=== PATIENT | female | born 1960 | race Caucasian/White ===

== ENCOUNTER 2019-02-21 13:19 | Day surgery (SDC) | payer MEDICARE, OTHER ==
[~2019-02-21 13:19] MED LIST: ACETAMINOPHEN 1,000 MG/100 ML BTL IV ONE; CEFAZOLIN 2 Gram 2 GM/50 ML BAG IVPB ONE
[2019-02-21] MEDS ORDERED: LIDOCAINE 2% MDV (20MG/ML) 20ML VIAL IV ONE (13:20)
[2019-02-21] MEDS ORDERED: HYDROCODONE/APAP 7.5/325MG TABLET PO ONE (13:20)
[2019-02-21] MEDS ORDERED: PROPOFOL 10 MG/ML VIAL IV ONE (13:20)
[2019-02-21] MEDS ORDERED: SEVOFLURANE 250 ML INH ONE (13:20)
[2019-02-21] MEDS ORDERED: MIDAZOLAM HCL 2MG/2ML VIAL IV ONE (13:20)
[2019-02-21] MEDS ORDERED: FENTANYL PF 100MCG/2ML VIAL IV ONE (13:20)
[2019-02-21] MEDS ORDERED: ONDANSETRON HCL IV 4 MG/2 ML VIAL IVP ONE (13:20)
[2019-02-21] MEDS ORDERED: KETOROLAC 30 MG/ML VIAL IVP ONE (13:20)
[2019-02-21 13:50] LABS: HEMATOCRIT 42.4 % (35.0-47.0); HEMOGLOBIN 13.9 gm/dl (11.6-16.0)
[2019-02-21 14:04] LABS: BLOOD UREA NITROGEN 29 mg/dL (6-20); CREATININE 0.7 mg/dL (0.5-0.9); EST GLOMERULAR FILTRATION RATE > 60 mL/min; GLUCOSE,RANDOM 101 mg/dL (74-109)
[2019-02-21] MEDS ORDERED: MORPHINE SULFATE 4 MG/ML VIAL ONE (16:32)
[2019-02-21] MEDS ORDERED: BUPIVACAINE 0.5% W/EPI MPF 30 ML VIAL SQ ONE ×2 (16:37)
[2019-02-21] MEDS ORDERED: MORPHINE SULFATE 5 MG/ML VIAL IM ONE ×2 (16:38)
[2019-02-21] MEDS ORDERED: METHYLPREDNISOLONE 40MG/VIAL IM ONE (16:38)
--- NOTE | 2019-03-05 08:51 | Operative Note ---
DATE OF SURGERY: 02/21/2019 PREOPERATIVE DIAGNOSIS: Internal derangement of the right knee. POSTOPERATIVE DIAGNOSES: 1. Small grade 3 chondromalacia of patella. 2. Grade 3 chondromalacia of medial femoral condyle centered at 45 degrees with peeling cartilage. 3. Small radial tear involving the lateral horn of the lateral meniscus. OPERATION: 1. Right knee arthroscopy with partial lateral meniscectomy. 2. Right knee arthroscopy with chondroplasty of medial femoral condyle and patella. Staff Surgeon: Yosef Schwarz MD Anesthesia: General. Preparation: Chloraprep. Individual Considerations: None. PROCEDURE: The patient was taken to the operating room and placed supine on the operating room table. The patient had a successful induction with general anesthetic. The right lower extremity was prepped and draped in the usual fashion. The patient had a superolateral inflow cannula placed. Skin was infiltrated with 0.5% Marcaine with epinephrine prior. The knee was then inflated with normal saline. An inferomedial and an inferolateral portal were made in a similar fashion. The arthroscope was introduced through the inferolateral portal up into the pouch. The patellofemoral compartment showed grade 3 change to the patella with normal tracking. Cartilaginous loose bodies were seen in both gutters and were irrigated out. No significant synovitis. Medially, the medial compartment was normal including meniscus and medial tibial plateau but she had basically peeling cartilage from grade 3 change at the medial femoral condyle centered at about 45 degrees of flexion. This was debrided back to a stable cartilage down to bone. The area was like the size of about an elongated quarter. In the notch, the cruciates were normal. In the lateral compartment, she had a small radial tear of the lateral horn of the lateral meniscus. This was debrided back to a stable rim to prevent the formation of flaps with a shaver and small basket. The remainder of the meniscus and articular cartilage laterally was intact. The knee was then irrigated out with saline to remove loose floating debris. Portals were closed with moe, and 20 mL of 0.5% Marcaine with epinephrine along with 4 mg of morphine and 80 mg of Depo-Medrol were injected into the knee. A sterile bulky compressive dressing was applied. The patient tolerated procedure well. Needle and sponge counts were correct. Estimated blood loss was minimal. She was taken back to recovery in good condition. There were no complications. [facility]
== END 2019-02-21 16:40 | disposition home or self-care (01) ==
LOC: SUR 13:19
PROVIDERS: ATTEND Orthopaedic Surgery
DX: S83.281A Other tear of lateral meniscus, current injury, right knee, initial encounter (principal); M94.261 Chondromalacia, right knee; I10 Essential (primary) hypertension; E78.00 Pure hypercholesterolemia, unspecified; E03.9 Hypothyroidism, unspecified; M81.0 Age-related osteoporosis without current pathological fracture
CPT/HCPCS: 29881; 01400; 85018; 85014; 80048; 93005; J1885; J2405; J3010; J0690; J2270; J1030

== ENCOUNTER 2019-10-24 06:54 | Day surgery (SDC) | payer MEDICARE, OTHER ==
[~2019-10-24 06:54] MED LIST changes: -ACETAMINOPHEN 1,000 MG/100 ML BTL IV ONE; +CELECOXIB 100 MG CAPSULE PO ONE; +FAMOTIDINE 20MG TABLET PO ONE; +METOCLOPRAMIDE 10 MG TABLET PO ONE; +SCOPOLAMINE 1 PATCH TDSY TD ONE; +VANCOMYCIN 1GM/200ML PREMIX 1 GM/200 ML PIGGYBACK IVPB ONE
[2019-10-24] MEDS ORDERED: LIDOCAINE 2% MDV (20MG/ML) 20ML VIAL IV ONE (06:55)
[2019-10-24] MEDS ORDERED: DIPHENHYDRAMINE HCL 50 MG/ML VIAL IVP ONE (06:55)
[2019-10-24] MEDS ORDERED: DEXAMETHASONE 4 MG/ML 1ML VIAL IVP ONE (06:55)
[2019-10-24] MEDS ORDERED: ROPIVACAINE HCL (NAROPIN) /PF 5MG/ML 20ML VIAL IV ONE (06:55)
[2019-10-24] MEDS ORDERED: PROPOFOL 10 MG/ML VIAL IV ONE (06:55)
[2019-10-24] MEDS ORDERED: MIDAZOLAM HCL 2MG/2ML VIAL IV ONE (06:55)
[2019-10-24] MEDS ORDERED: RINGERS SOLUTION,LACTATED 1,000 ML IV ONE ×3 (07:50→11:13)
[2019-10-24 08:50] LABS: ABO GROUP A; ANTIBODY SCREEN NEGATIVE (NEGATIVE); RH TYPE POSITIVE
[2019-10-24] MEDS ORDERED: BUPIVACAINE 0.5% W/EPI MPF 30 ML VIAL IU ONE (09:58)
[2019-10-24] MEDS ORDERED: TRANEXAMIC ACID 1,000 MG/10 ML ML IV ONE (09:59)
[2019-10-24] MEDS ORDERED: TRANEXAMIC ACID 1,000 MG/10 ML ML IU ONE (09:59)
[2019-10-24] MEDS: FENTANYL CITRATE/PF (PACU) 50 MCG/ML VIAL IVP PRN ×4 (11:35→11:45)
[2019-10-24] MEDS ORDERED: HYDROMORPHONE HCL 2 MG/ML VIAL IVP PRN (11:46)
[2019-10-24] MEDS ORDERED: BACLOFEN 10 MG TABLET PO PRN (12:18)
[2019-10-24] MEDS ORDERED: ONDANSETRON HCL IV 4 MG/2 ML VIAL IVP PRN (12:23)
[2019-10-24] MEDS ORDERED: TRAMADOL HCL 50 MG TABLET PO PRN (12:23)
[2019-10-24] MEDS ORDERED: NALOXONE 0.4 MG/1 ML VIAL IVP PRN (12:23)
[2019-10-24] MEDS ORDERED: ZOLPIDEM TARTRATE 5 MG TABLET PO PRN (12:23)
[2019-10-24] MEDS ORDERED: BISACODYL 10 MG SUPP RC PRN (12:23)
[2019-10-24] MEDS ORDERED: AL HYDROX/MAG HYDROX 30ML UD PO PRN (12:23)
[2019-10-24] MEDS ORDERED: KETOROLAC 30 MG/ML VIAL IVP PRN (12:23)
[2019-10-24] MEDS ORDERED: ACETAMINOPHEN W/ CODEINE 300MG/60MG TABLET PO PRN ×2 (12:23)
[2019-10-24] MEDS ORDERED: DIPHENHYDRAMINE HCL 25 MG CAPSULE PO PRN (12:23)
[2019-10-24] MEDS ORDERED: ACETAMINOPHEN 325 MG TAB PO PRN (12:23)
[2019-10-24] MEDS ORDERED: MAGNESIUM HYDROXIDE 30 ML UDC PO PRN (12:23)
--- NOTE | 2019-10-24 15:26 | Rehab Evaluation ---
Patient Information - Patient Information Diagnosis: R Knee DJD Ordered Treatment: PT Evaluate and Treat Status: Initial Evaluation Surgery: Yes (R TKA) Date of Surgery: 10/24/19 Past Medical/Surgical Hx: PAST MEDICAL/SURGICAL HISTORY Past Surgical History Injections to right knee, Right knee scope Uterine ablation Spinal surgerysx 10- rods, cages, screws thyroidectomy colonoscopy; c section 34 yrs ago. PMH - Respiratory Hx Respiratory Disorders No PMH - Cardiovascular Hx Cardiovascular Disorders Yes Hx Hypertension Yes: on meds good control Exercise Tolerance Good PMH - Neuro Hx Neurological Disorders No PMH - GI Hx Gastrointestinal Disorders No PMH - Hx Genitourinary Disorders No PMH - Endocrine Hx Endocrine Disorders Yes Hx Thyroid Disease Yes: removed, on medications PMH - Musculoskeletal Hx Musculoskeletal Disorders Yes Hx Arthritis Yes: knees, elbows, hips, hands Hx Osteoporosis Yes: on medications PMH - Psych Hx Psychiatric Problems Yes Hx Depression Yes: on meds, good control PMH - Hematology/Oncology Hx Hematology/Oncology Yes Disorders Hx Bruising Yes: from aspirin, bruises easy Social History: Detail (Patient lives alone in a tri-level home. There are seven steps to get in the house from the garage, and then another seven to get to the living room on the next floor. There is 1 railing on all of the flights of stairs. In the bathroom there is a walk-in shower with a hand-held shower head and a shower bench but no grab bars. There is a raised toilet with no grab bars, but patient stated that there is a counter nearby that she can use to pushup from. Patient reported that she will have assistance for the first weekend after returning home. She has a 2-wheeled walker, and a single point cane available to use. She is scheduled to begin home PT following discharge.) Precautions: [place], Fall, Other (WBAT on R LE) - Time With Patient Total Time Spent With Patient (Min): 30 Treatment Procedures: Detail (Initial evaluation; low complexity. The patient was left in bed with her call llight and bedside table within reach. The patient's family was in the room with her.) Subjective Information - Subjective Information Per Patient (Patient reported that her R knee felt sore but she was not having any pain yet.) Objective Data - Pain Pain Present: No - Mental Status Patient Orientation: Oriented x3 - Visual Perception Appears within normal limits for therapeutic activities - ROM Other (R knee ROM is limited as expected s/p R TKA procedure. R hip and ankle, and L LE ROM is within normal limits for functional activities.) - Strength/Tone Other (R knee strength is limited as expected s/p R TKA procedure. R ankle and hip, and L LE strength is within normal limits for functional activities.) - Coordination Appears within normal limits for therapeutic activities - Bed Mobility Independent (Patient was independent in moving up in bed, and moving to the sides in bed. She was also independent in moving to and from the edge of the bed.) - Transfers Independent (Patient was independent in sit to stand, stand to sit, sit to supine, supine to sit.) - Balance Balance Sitting: Good (Patient demonstrated good sitting balance while donning and doffing her shoes and socks.) Balance Standing: Good (Patient demonstrated good standing balance while donning her pants and briefs when using the bathroom, and when ambulating with the front-wheeled walker.) - Gait Detail (The patient ambulated 80 feet with a front-wheeled walker with supervision, and was WBAT on the R LE.) Therapy Assessment - Therapy Assessment Detail (Patient presents with decreased ROM and strength of the R knee that make her a good candidate for inpatient physical therapy. She will progress towards meeting her goals by the time of discharge.) Problem List - Problem List Physical Therapy Problem List: Detail (1. Decreased R knee ROM 2. Decreased R knee strength 3. Gait abnormalities 4. Decreased tolerance for stairs) Goals - Goals Physical Therapy Goals: 1. Patient will be able to demonstrate correct technique of HEP exercises and good understanding of exercises to improve R knee ROM and strength following discharge. 2. The patient will be able to ambulate household distances using the front-wheeled walker, and WBAT on the R LE, independently to be able to get around her home following discharge. 3. The patient will be able to negotiate 7 stairs with correct technique to be able to use the stairs in her home following discharge. Prognosis - Prognosis Good Plan - Plan Physical Therapy Plan: Patient will be seen for 1-2 more visits for therapeutic exercises and activities, gait training, stair training, and HEP instruction.
--- NOTE | 2019-10-24 15:33 | Rehab Evaluation ---
Patient Information - Patient Information Diagnosis: R Knee OA Ordered Treatment: OT Evaluate and Treat Status: Initial Evaluation Surgery: Yes (R TKA) Date of Surgery: 10/24/19 Past Medical/Surgical Hx: PAST MEDICAL/SURGICAL HISTORY Past Surgical History Injections to right knee, Right knee scope Uterine ablation Spinal surgerysx 10- rods, cages, screws thyroidectomy colonoscopy; c section 34 yrs ago. PMH - Respiratory Hx Respiratory Disorders No PMH - Cardiovascular Hx Cardiovascular Disorders Yes Hx Hypertension Yes: on meds good control Exercise Tolerance Good PMH - Neuro Hx Neurological Disorders No PMH - GI Hx Gastrointestinal Disorders No PMH - Hx Genitourinary Disorders No PMH - Endocrine Hx Endocrine Disorders Yes Hx Thyroid Disease Yes: removed, on medications PMH - Musculoskeletal Hx Musculoskeletal Disorders Yes Hx Arthritis Yes: knees, elbows, hips, hands Hx Osteoporosis Yes: on medications PMH - Psych Hx Psychiatric Problems Yes Hx Depression Yes: on meds, good control PMH - Hematology/Oncology Hx Hematology/Oncology Yes Disorders Hx Bruising Yes: from aspirin, bruises easy Premorbid Status: Detail (The patient is responsible for all home mgmt, meal prep and laundry tasks. She has a lawn service for yard work.) Social History: Detail (Patient lives alone in a tri-level home. There are seven steps to get in the house from the garage, and then another seven to get to the living room on the next floor. There is 1 railing on all of the flights of stairs. In the bathroom there is a walk-in shower with a hand-held shower head and a shower bench but no grab bars. There is a raised toilet with no grab bars, but patient stated that there is a counter nearby that she can use to push up from. Patient reported that she will have assistance for the first weekend after returning home. She has a 2-wheeled walker and a single point cane available to use. She is scheduled to begin home PT following discharge.) Precautions: [place], Fall, Other (WBAT right LE) - Time With Patient Total Time Spent With Patient (Min): 35 Treatment Procedures: Detail (OT eval low complexity) Subjective Information - Subjective Information Per Patient Objective Data - Pain Pain Present: Yes (02/21) - Mental Status Patient Orientation: Oriented x3 - Visual Perception Appears within normal limits for therapeutic activities - ROM Within normal limits (Jacob UE AROM WNL) - Strength/Tone Within normal limits (Jacob UE strength WNL) - Coordination Appears within normal limits for therapeutic activities - Bed Mobility Independent (Ind with supine to sit and sit to supine) - Transfers Independent (Ind with sit to stand from EOB and commode heights) - Balance Balance Sitting: Good Balance Standing: Good - Sensation Intact (Jacob UE intact sensation) - Gait Detail (Pt ambulating short distances in hallway with 2 wheeled walker and SBA) - ADL's/IADL's Detail (Pt educated and able to demonstrate learning of modified LE dressing techniques including doffing and donning slipper socks and donning and doffing pants, socks and tennis shoes. Reviewed kitchen and shower safety and modifications, pt able to verbalize understanding.) Therapy Assessment - Therapy Assessment Detail (Pt is Ind with modified LE dressing techniques.) Problem List - Problem List Occupational Therapy Problem List: Detail (No current IP OT problems identified.) Goals - Goals Occupational Therapy Goals: No current IP OT goals identified. Prognosis - Prognosis Good Plan - Plan Occupational Therapy Plan: Pt is discharged from IP OT at this time. Thank you for this referral.
[2019-10-24] MEDS: HYDROCODONE/APAP 10/325 TABLET PO PRN ×3 (15:45→22:23)
[2019-10-24] MEDS: CEFAZOLIN 2 Gram 2 GM/50 ML BAG IVPB SCH (17:01)
[2019-10-24] MEDS: HYDROMORPHONE HCL 2 MG/ML VIAL IM PRN (18:54)
[2019-10-24] MEDS: POTASSIUM CHLORIDE/D5-0.9%NACL 20 MEQ/1,000 ML BAG IV SCH (19:37)
[2019-10-24] MEDS: DOCUSATE SODIUM 100 MG CAPSULE PO SCH (21:21)
[2019-10-24] MEDS ORDERED: ATORVASTATIN 20 MG TABLET PO SCH (22:00)
[2019-10-25] MEDS: CEFAZOLIN 2 Gram 2 GM/50 ML BAG IVPB SCH ×2 (01:13→09:09)
[2019-10-25] MEDS: HYDROCODONE/APAP 10/325 TABLET PO PRN ×4 (02:42→14:24)
[2019-10-25] MEDS: POTASSIUM CHLORIDE/D5-0.9%NACL 20 MEQ/1,000 ML BAG IV SCH ×2 (04:59→05:00)
[2019-10-25 06:40] LABS: HEMATOCRIT 32.7 % (35.0-47.0); HEMOGLOBIN 10.1 gm/dl (11.6-16.0)
[2019-10-25 06:55] LABS: BLOOD UREA NITROGEN 13 mg/dL (8-23); CREATININE 0.6 mg/dL (0.5-0.9); EST GLOMERULAR FILTRATION RATE > 60 mL/min; GLUCOSE,RANDOM 109 mg/dL (74-109)
[2019-10-25] MEDS ORDERED: LEVOTHYROXINE SOD 112 MCG TAB PO SCH (07:00)
--- NOTE | 2019-10-25 08:40 | Operative Note ---
DATE OF SURGERY: 10/24/2019 PREOPERATIVE DIAGNOSIS: End-stage arthrosis of the right knee. POSTOPERATIVE DIAGNOSIS: End-stage arthrosis of the right knee. OPERATION: Cemented right total knee arthroplasty using Damico and Nephew components with a size 4 Oxinium Legion femur, a size 3 stemmed tibia baseplate, an 11 mm lipped highly crosslinked tibial insert, and a 32 mm all-plastic patella. STAFF SURGEON: Yosef Schwarz MD ANESTHESIA: Spinal. PREPARATION: Chloraprep. INDIVIDUAL CONSIDERATIONS: None. CONTRACT DESIGNER: Mrs. Merary Parham PROCEDURE: The patient was taken to the operating room, placed supine on the operating room table. She had a successful induction of a spinal anesthetic. The right lower extremity was prepped and draped in the usual fashion. The patient had a midline approach to the knee. The limb was elevated and tourniquet was inflated to 250 mmHg. Sharp dissection carried down through skin and subcutaneous tissue. Small veins were coagulated with a Bovie. A medial arthrotomy was performed. The patella was everted and the knee was flexed. The patient had exposed bone in the medial compartment and some in the notch and under the patella. Fat pad was resected, ACL was sacrificed, and provisional anterior meniscectomies were performed. The capsule was released from the medial proximal tibia. The initial femoral pilot manager hole was then made freehand. The intramedullary femoral cutting jig was placed. It was cut in 7.0 degrees of valgus and adjusted for rotation and secured with pins for a 10 mm resection. The initial transverse cut was then made. The skin guide was placed in the anterior and posterior pilot manager holes. After translating it anteriorly 2 mm without notching the femur, it was found that a size 4 would be appropriate. The anterior and posterior cuts followed by chamfer cuts were made. Osteophytes removed, and a size 4 trial was placed and found to fit well. The tibia was brought forward, and the remainder of the meniscal remnants removed with a Bovie. The extraarticular tibial cutting jig was placed. It was cut in neutral with a 3-degree AP slope. It was set for a 9 mm resection keyed off the high lateral side and secured with pins. When cutting the tibia, care was taken to preserve the PCL insertion on the tibia. After removing medial osteophytes, I could fit a size 3. It was adjusted for rotation and secured with pins. With an 11 mm trial and femoral trial, there was excellent motion and stability. Ligamentous balance and rotation alignment were thought to be normal. Femoral pilot manager holes were impacted and tri-flange tibial keel stamp was impacted, and these trial components were removed. The patient had a thick patella and roughly 9 mm of bone was removed freehand. I was easily able to fit a 32 patella, and the 3 pilot manager holes were then drilled. The tourniquet was let down briefly to get bleeders posteriorly and then placed back up again. The knee was then thoroughly irrigated out with pulsatile Betadine and saline to remove any visual or palpable debris. Bony surfaces were dried. I went ahead and dried the bony surfaces prior to cementing with a CarboJet. A size 3 stemmed tibia baseplate was cemented into place followed by cementing in the size 4 Oxinium femur followed by an 11 mm highly crosslinked lipped tibial insert followed by cementing in the 32 mm all-plastic patella. The implant surfaces were compressed, excess cement was removed. After the cement had set, there was excellent motion and stability. Ligamentous balance, rotation alignment, and patellofemoral tracking were normal although I had to do a very limited lateral release just on the sides of the patella to facilitate tracking. After irrigation, tourniquet was let down. Hemostasis was obtained with a Bovie. The periosteum, skin, and subcu were infiltrated with 30 mL of 0.5% Marcaine with epinephrine. The capsule was then closed with a running #2 quill, subcu was closed in layers with running 0 quill, skin was closed with moe. The patient did receive 1 g of tranexamic acid preoperatively. I mixed 1 g of tranexamic acid with 30 mL of saline and this was injected into the knee through a sterile 18-gauge needle, and a sterile bulky compressive FRENCH-type dressing was applied. The patient tolerated the procedure well. Needle and sponge counts were correct. Estimated blood loss was minimal, and she was taken back to recovery in good condition. There were no complications. [facility]
[2019-10-25] MEDS: DOCUSATE SODIUM 100 MG CAPSULE PO SCH (09:09)
[2019-10-25] MEDS ORDERED: RIVAROXABAN 10 MG TABLET PO SCH (10:00)
[2019-10-25] MEDS ORDERED: LISINOPRIL 5 MG TABLET PO SCH (10:00)
[2019-10-25] MEDS ORDERED: DULOXETINE HCL 30 MG CAPSULE.DR PO SCH (10:00)
[2019-10-25] MEDS ORDERED: FERROUS SULFATE 325 MG TAB PO SCH (10:00)
[2019-10-25] MEDS: HYDROMORPHONE HCL 2 MG/ML VIAL IM PRN (11:42)
--- NOTE | 2019-10-25 13:46 | Physical Therapy Tx Note ---
Physical Therapy Tx Note - Treatment Note Tolerated: Good Total Time Spent With Patient: 30 Physical Therapy Tx Note: Detail (Patient was reclined in bed upon [employer] arrival. Patient performed the following exercises x10 reps each: ankle pumps, heel slides, glut squeezes, quad sets, hamstring sets, and SLR x5. Patient transferred supine to sit independently. Patient transferred sit to and from stand SBA x1. Patient ambulated 13 feet with wheeled walker SBA x1. Patient transferred sit to and from stand SBA x1. Patient ambulated 240 feet with wheeled walker SBA x1. Patient descended and ascended 11 steps with using stairwell railing and walker CGA x1. Patient transferred sit to supine independently. Patient scooted up in bed independently. Patient displayed good understanding of HEP, ambulation, and stair climbing. Patient was left reclined in bed with call light within reach. Patient discharged from inpatient PT at this time as all goals are met.) Physical Therapy Problem List: Detail (1. Decreased R knee ROM 2. Decreased R knee strength 3. Gait abnormalities 4. Decreased tolerance for stairs) Physical Therapy Goals: 1. Patient will be able to demonstrate correct technique of HEP exercises and good understanding of exercises to improve R knee ROM and strength following discharge. Met. 2. The patient will be able to ambulate household distances using the front-wheeled walker, and WBAT on the R LE, independently to be able to get around her home following discharge. Met. 3. The patient will be able to negotiate 7 stairs with correct technique to be able to use the stairs in her home following discharge. Met. Prognosis: Good Physical Therapy Plan: Patient discharged from inpatient PT at this time as all goals are met.
[2019-10-25] MEDS ORDERED: ASPIRIN 81 MG TABEC PO SCH (22:00)
== END 2019-10-25 15:40 | disposition home health service (06) ==
LOC: SUR 06:54 → MEDSURG 12:15 → SUR 10-25 15:40
PROVIDERS: ATTEND Orthopaedic Surgery
DX: M17.11 Unilateral primary osteoarthritis, right knee (principal); I10 Essential (primary) hypertension; E78.00 Pure hypercholesterolemia, unspecified; E03.9 Hypothyroidism, unspecified; Z86.14 Personal history of Methicillin resistant Staphylococcus aureus infection
CPT/HCPCS: 76942; 80048; 85014; 85018; 86850; 86900; 86901; C1776; J1200; J1885; J3370; J3480; J7120